=== PATIENT | female | born 1975 | race Two or more races ===

== ENCOUNTER → 2024-11-07 | Outpatient (CLI) | payer MEDICAID, SELFPAY ==
--- NOTE | 2024-11-07 | XR_ITS ---
Examination: Abdomen AP single view Technique: AP portable supine abdomen, single view Exam date and time: November 07, 2024 1134 hours INDICATIONS: History flank pain kidney stones months FINDINGS: 20 mm calculus in distribution right renal pelvis 2 mm left renal calculus No ureteral calculi identified IMPRESSION: 20 mm calculus in distribution right renal pelvis
== END | disposition home or self-care (01) ==
LOC: CDIM 11:02
PROVIDERS: PCP Nurse Practitioner Primary Care; Referring Provider Surgery; Visit Provider Surgery
DX: N20.0 Calculus of kidney (principal)
CPT/HCPCS: 74018

== ENCOUNTER → 2024-12-11 | Outpatient (CLI) | payer MEDICAID, SELFPAY ==
[2024-12-11 10:32] LABS: HCG Qualitative,Urine Negative
--- NOTE | 2024-12-11 13:00 | XR_ITS ---
Examination: Nuclear medicine kidney imaging flow and function multiple studies Exam date and time: December 11, 2024 1539 hours INDICATIONS: History kidney stones renal insufficiency TECHNIQUE AND FINDINGS: Intravenous ministration 10 mCi technetium 99m MAG3 Flow and function curves generated to 60 minutes No right renal flow or function Adequate left renal flow Moderately impaired left renal function, persistent renal activity at 20 minutes 69.4% IMPRESSION: No right renal flow or function Moderately impaired left renal function
== END | disposition home or self-care (01) ==
LOC: SNUC 12-12 08:33
PROVIDERS: PCP Nurse Practitioner Primary Care; Referring Provider Surgery; Visit Provider Surgery
DX: N20.0 Calculus of kidney (principal); N28.9 Disorder of kidney and ureter, unspecified; Z32.00 Encounter for pregnancy test, result unknown
CPT/HCPCS: 78709; 81025; A9562

== ENCOUNTER → 2025-05-06 | Outpatient (CLI) | payer MEDICAID, SELFPAY ==
--- NOTE | 2025-05-06 10:45 | XR_ITS ---
Examination: Screening digital mammography, bilateral Computer aided detection 3-D breast Tomosynthesis, bilateral Date and time of exam: May 06, 2025 0932 hours Compared to mammograms dating to December 17, 2022 Indication: Screening Technique: Nonmagnified MLO, CC views of the breasts to been obtained, reconstructed from 3-D Tomosynthesis images. R2 computer aided detection program utilized for evaluation of suspicious masses and/or abnormal calcifications. 3-D Tomosynthesis images obtained. Findings: Scattered areas of fibroglandular density 3 mm circumscribed nodule upper right breast MLO view, anterior depth, 5 cm from the nipple Impression: BI-RADS Category 0: Incomplete: Need additional imaging evaluation 3 mm circumscribed nodule upper right breast MLO view, anterior depth, 5 cm from the nipple, recommend follow-up spot tomographic views upper outer quadrant right breast as well as right breast sonography to complete the workup
== END | disposition home or self-care (01) ==
LOC: CDIM 08:59
PROVIDERS: Referring Provider Nurse Practitioner Primary Care; Visit Provider Nurse Practitioner Primary Care
DX: Z12.31 Encounter for screening mammogram for malignant neoplasm of breast (principal); R92.323 Mammographic fibroglandular density, bilateral breasts; N63.10 Unspecified lump in the right breast, unspecified quadrant
CPT/HCPCS: 77063; 77067

== ENCOUNTER → 2025-08-15 | Outpatient (CLI) | payer MEDICAID, SELFPAY ==
--- NOTE | 2025-08-15 11:00 | XR_ITS ---
Examination: Breast ultrasound, unilateral, right complete Date and time of exam: August 15, 2025, 12:21 p.m. INDICATIONS: Mammogram May 06, 2025 3 mm nodule upper right breast MLO view 5 cm from the nipple Technique: Real-time taveras scale ultrasonographic imaging performed right breast including all 4 quadrants as well as nipple retroareolar and axillary region. Findings: No cystic or solid mass IMPRESSION: BI-RADS Category 1: Negative study
--- NOTE | 2025-08-15 11:45 | XR_ITS ---
Examination: Diagnostic digital mammography, unilateral, right Computer aided detection 3-D breast Tomosynthesis, unilateral Date and time of exam: August 15, 2025, 12:40 p.m. INDICATIONS: Mammogram May 06, 2025 3 mm circumscribed nodule upper right breast MLO view Technique: Nonmagnified MLO, CC views of the right breast have been obtained, reconstructed from 3-D Tomosynthesis images. R2 computer aided detection program utilized for evaluation of suspicious masses and/or abnormal calcifications. 3-D Tomosynthesis images obtained. Findings: Scattered areas of fibroglandular density. No suspicious nodules noted on the spot compression views Impression: BI-RADS category 2: Benign findings Return to yearly follow-up mammography
== END | disposition home or self-care (01) ==
LOC: CDIM 11:58
PROVIDERS: PCP Nurse Practitioner Primary Care; Referring Provider Nurse Practitioner Primary Care; Visit Provider Nurse Practitioner Primary Care
DX: R92.321 Mammographic fibroglandular density, right breast (principal)
CPT/HCPCS: 76641; 77061; 77065; G0279